=== PATIENT | female | born 1985 | race Hispanic/Latino ===

== ENCOUNTER 2017-01-22 10:49 | Emergency (ER) | payer OTHER, SELFPAY ==
[2017-01-22] MEDS ORDERED: Fentanyl 100 MCG/2 ML VIAL ONE (11:06)
[2017-01-22] MEDS ORDERED: ceFAZolin Sodium 1 GM VIAL ONE (11:12)
[2017-01-22] MEDS ORDERED: Sodium Chloride 0.9% 100 ML BAG ONE (11:15)
[2017-01-22] MEDS ORDERED: Sodium Chloride Irrig Solution 250 ML BOT ONE (11:15)
[2017-01-22 11:34] LABS: #Basophils 0.1 thou/uL (0.0-0.2); #Lymphocytes 1.4 thou/uL (1.20-3.40); #Monocytes 0.5 thou/uL (0.11-0.59); #Neutrophils 6.1 thou/uL (1.40-6.50); %Basophils 0.6 % (0.0-1.0); %Eosinophils 0.1 % (0.0-10.0); %Lymphocytes 17.4 % (21.0-51.0); %Monocytes 6.4 % (0.0-10.0); %Neutrophils 75.5 % (42.0-75.0); Hemoglobin 14.2 g/dL (12.0-16.0); Mean Corpuscular HGB CONC 34.5 g/dL (32.0-36.0); Mean Corpuscular Hemoglobin 30.1 pg (27.0-31.0); Mean Corpuscular Volume 87.4 fl (81.0-99.0); Mean Platelet Volume 7.6 fL (7.4-10.4); Platelet Count 211 thou/uL (130-400); Prothrombin Time 13.6 SEC (12.0-14.7); RBC Distribution Width 10.6 % (11.5-14.5); Red Blood Cell (RBC) Count 4.72 mill/uL (4.20-5.40)
[2017-01-22 11:37] LABS: BHCG - Serum Negative (NEGATIVE); Pregs Control Background? CLEAR/WHITE (CLR/WHITE); Pregs Control Bar Appear? YES (CONTROL BAR)
[2017-01-22 11:41] LABS: Anion Gap 17 mmol/L (10-20); BUN (Urea Nitrogen) 17 mg/dL (7.0-18.7); Calc. Creatinine Clearance 0 mL/min (70-130); Calcium 8.8 mg/dL (7.8-10.44); Carbon Dioxide 20 mmol/L (22-29); Chloride 108 mmol/L (98-107); Estimated GFR-MDRD Greater than 90; Glucose 116 mg/dL (70-105); Potassium 3.9 mmol/L (3.5-5.1); Sodium 141 mmol/L (136-145)
--- NOTE | 2017-01-22 12:28 | RAD ---
RIGHT TIBIA/FIBULA TWO VIEWS HISTORY: Injury. FINDINGS: There is a comminuted proximal fibular shaft fracture and a spiral type fracture of the distal tibia l shaft. Both fractures are minimally displaced or angulated. IMPRESSION: Proximal fibular and distal tibial fractures. POS: [facility]
== END 2017-01-22 12:12 | disposition short-term general hospital (02) ==
LOC: MADERS 10:49
DX: O9A.23 Injury, poisoning and certain other consequences of external causes complicating the puerperium (principal); S82.451A Displaced comminuted fracture of shaft of right fibula, initial encounter for closed fracture; S82.241A Displaced spiral fracture of shaft of right tibia, initial encounter for closed fracture; W18.30XA Fall on same level, unspecified, initial encounter
CPT/HCPCS: 36415; 80048; 84703; 85025; 85610; 85730; 96374; 96375; A4570; J0690; J3010; J7050